=== PATIENT | male | born 1980 | race Caucasian/White ===

== ENCOUNTER 2019-05-17 11:42 | Emergency (ER) | payer OTHER ==
[~2019-05-17] VITALS: Ht 170.2 cm; Wt 63.6 kg
[2019-05-17] MEDS ORDERED: ROBA500T PO (12:54)
[2019-05-17] MEDS ORDERED: IBUP-1022 PO (12:54)
[2019-05-17 13:01] VITALS: BP 124/74
--- NOTE | 2019-05-17 13:03 | REP ---
LEFT WRIST, FOUR VIEWS: There is no evidence of an acute fracture, dislocation or intrinsic bone disease. IMPRESSION: No fracture or dislocation. Electronically Signed by Giovanni Santillan MD 05/18/2019 09:32 A
== END 2019-05-17 13:06 | disposition home or self-care (01) ==
LOC: M ED 11:42
DX: S16.1XXA Strain of muscle, fascia and tendon at neck level, initial encounter (principal); S63.502A Unspecified sprain of left wrist, initial encounter; W18.39XA Other fall on same level, initial encounter; Y92.89 Other specified places as the place of occurrence of the external cause

== ENCOUNTER 2019-08-20 18:58 | Emergency (ER) | payer OTHER ==
[~2019-08-20] VITALS: Ht 170.2 cm; Wt 63.6 kg
[~2019-08-20 18:58] MED LIST: IBUP-1022 PO; ROBA500T PO
[2019-08-20] MEDS ORDERED: NORCO, ANEXSIA 5/325MG TABLET (HYDROcodone/ACETAMINOPHEN) PO ONE (19:30)
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
[2019-08-20 21:12] VITALS: BP 131/76
--- NOTE | 2019-08-21 08:30 | REP ---
Chest, single PA view: There are no comparisons. There is no pneumothorax, hemothorax or pulmonary contusion. The lung brasher are clear. Cardiac size is normal. The maxine, mediastinum, skeletal structures are well. Impression: Negative PA chest. Electronically Signed by Giovanni Canada MD 08/21/2019 08:22 A
--- NOTE | 2019-08-21 08:30 | REP ---
Right shoulder three view : There is no fracture or dislocation. Mineralization and joint spaces are normal. There are no calcifications or foreign bodies. Impression: Negative right shoulder . Electronically Signed by Giovanni Canada MD 08/21/2019 08:22 A
== END 2019-08-20 21:15 | disposition home or self-care (01) ==
LOC: M ED 18:58 → EDBD 18:58 → M ED 21:15
DX: S16.1XXA Strain of muscle, fascia and tendon at neck level, initial encounter (principal); S46.811A Strain of other muscles, fascia and tendons at shoulder and upper arm level, right arm, initial encounter; V43.52XA Car driver injured in collision with other type car in traffic accident, initial encounter; Y92.410 Unspecified street and highway as the place of occurrence of the external cause; F17.200 Nicotine dependence, unspecified, uncomplicated

== ENCOUNTER 2022-12-01 13:22 | Emergency (ER) | payer OTHER ==
[~2022-12-01] VITALS: Ht 167.6 cm; Wt 53.6 kg
[2022-12-01] MEDS ORDERED: IBUP-1022 PO (15:27)
[2022-12-01 15:41] VITALS: BP 130/80
== END 2022-12-01 15:45 | disposition home or self-care (01) ==
LOC: M ED 13:22
DX: R07.89 Other chest pain (principal); F17.200 Nicotine dependence, unspecified, uncomplicated

== ENCOUNTER 2023-07-21 15:41 | Emergency (ER) | payer OTHER ==
[~2023-07-21] VITALS: Ht 167.6 cm; Wt 61.4 kg
[2023-07-21 16:01] VITALS: BP 136/60; TEMP 97.7; O2SAT 98
[2023-07-21] MEDS ORDERED: NS 1,000 ML IV ONE (17:20)
[2023-07-21 18:08] LABS: BASO % 0.2 % (0.0-1.0); EOS % 0.1 % (0.0-3.0); HEMOGLOBIN 13.8 g/dl (13.5-17.5); LYMPH # 0.9 10^3/uL (1.5-5.0); LYMPH % 6.3 % (24.0-44.0); MEAN CORPUSCULAR HEMOGLOBIN 32.2 pg (27.0-33.0); MEAN CORPUSCULAR HGB CONC 33.7 g/dl (32.0-36.5); MEAN CORPUSCULAR VOLUME 95.8 fl (80.0-96.0); MONO # 0.6 10^3/uL (0.0-0.8); MONO % 3.7 % (2.0-8.0); NEUTROPHILS # 13.3 10^3/uL (1.5-8.5); NEUTROPHILS % 89.4 % (36.0-66.0); PLATELET COUNT, AUTOMATED 345 10^3/uL (150-450); RED BLOOD COUNT 4.28 10^6/uL (4.30-6.10); WHITE BLOOD COUNT 14.9 10^3/uL (4.0-10.0)
[2023-07-21 18:20] LABS: ALBUMIN 4.5 G/DL (3.2-5.2); ALKALINE PHOSPHATASE 69 U/L (46-116); ALT/SGPT 32 U/L (7.0-40); AST/SGOT 25 U/L (<34); BILIRUBIN,DIRECT < 0.1 MG/DL (<0.4); BILIRUBIN,TOTAL 0.2 MG/DL (0.3-1.2); BLOOD UREA NITROGEN 19 MG/DL (9-23); CALCIUM LEVEL 9.1 MG/DL (8.5-10.1); CARBON DIOXIDE LEVEL 29 MMOL/L (20-31); CHLORIDE LEVEL 108 MMOL/L (98-107); CREATININE FOR GFR 0.81 MG/DL (0.70-1.30); GLOMERULAR FILTRATION RATE > 60.0 (>60); GLUCOSE, FASTING 98 MG/DL (60-100); POTASSIUM SERUM 4.3 MMOL/L (3.5-5.1); SODIUM LEVEL 140 MMOL/L (136-145); TOTAL PROTEIN 6.7 G/DL (5.7-8.2)
[2023-07-21] MEDS ORDERED: FLOM0.4C39 PO (19:37)
[2023-07-21] MEDS ORDERED: KETO10TAB PO (19:37)
== END 2023-07-21 19:59 | disposition home or self-care (01) ==
LOC: EDBD 15:41 → M ED 15:41
DX: N20.1 Calculus of ureter (principal); Z87.442 Personal history of urinary calculi; F17.210 Nicotine dependence, cigarettes, uncomplicated; Z84.1 Family history of disorders of kidney and ureter

== ENCOUNTER 2025-05-29 20:40 | Emergency (ER) | payer OTHER, SELFPAY ==
[~2025-05-29] VITALS: Ht 167.6 cm; Wt 53.8 kg
[~2025-05-29 20:40] MED LIST changes: +KETO10TAB PO; +TAMS-18 PO
[2025-05-29 20:43] VITALS: BP 110/73; TEMP 97.1; O2SAT 92
[2025-05-29] MEDS: ONDANSETRON 4MG 2ML VIAL IV ONE (22:20)
[2025-05-29] MEDS: TETANUS/DIPHTH/ACEL. PERTUSSIS 0.5 ML SYR IM.IMMUN ONE (22:21)
[2025-05-29] MEDS: MORPHINE 4 MG/ML 1 ML VIAL IV ONE (22:21)
[2025-05-29] MEDS: LIDOCAINE 1% MDV 20 ML VIAL SC ONE (23:59)
[2025-05-30] MEDS: OXYCODONE/APAP 5MG/325MG(HOME DOSE PACK) PO ONE (00:19)
[2025-05-30] MEDS: CEPHALEXIN 500 MG CAP PO ONE (00:19)
[2025-05-30] MEDS ORDERED: CEPH500C PO (00:22)
== END 2025-05-30 00:38 | disposition home or self-care (01) ==
LOC: M ED 20:40
DX: S61.112A Laceration without foreign body of left thumb with damage to nail, initial encounter (principal); Y92.9 Unspecified place or not applicable; Y93.9 Activity, unspecified; Y99.9 Unspecified external cause status; W31.2XXA Contact with powered woodworking and forming machines, initial encounter; Z23 Encounter for immunization; Z79.1 Long term (current) use of non-steroidal anti-inflammatories (NSAID); Z79.2 Long term (current) use of antibiotics; Z79.899 Other long term (current) drug therapy
CPT/HCPCS: 73140; 90471; 90715; 99284; J2405